=== PATIENT | female | born 1955 | race Caucasian/White ===

== ENCOUNTER 2024-03-16 10:12 | Day surgery (SDC) | payer OTHER ==
[2024-03-12 16:17] LABS: BASOPHILS # (AUTO) 0.1 X10'3 (0-0.2); EOSINOPHILS # (AUTO) 0.1 X10'3 (0-0.9); EOSINOPHILS % (AUTO) 1.1 % (0-6); LYMPHOCYTES # (AUTO) 2.3 X10'3 (1.1-4.8); LYMPHOCYTES % (AUTO) 37.1 % (21-51); MEAN CORPUSCULAR HEMOGLOBIN 30.3 PG (27.0-31.0); MEAN CORPUSCULAR VOLUME 89.2 FL (78-98); MEAN PLATELET VOLUME 7.4 FL (7.4-10.4); MONOCYTES # (AUTO) 0.5 X10'3 (0-0.9); MONOCYTES % (AUTO) 8.8 % (2-12); NEUTROPHILS # (AUTO) 3.2 X10'3 (1.8-7.7); PRE OP HEMATOCRIT 37.4 % (35.0-45.0); PRE OP HEMOGLOBIN 12.7 g/dL (12.0-16.0); PRE OP PLATELET COUNT 324 X10'3 (140-440); PRE OP WHITE BLOOD COUNT 6.1 10'3 (4.8-10.8); RED BLOOD COUNT 4.19 X10'6 (4.20-5.60); RED CELL DISTRIBUTION WIDTH 13.9 % (11.5-14.5)
[2024-03-12 16:18] LABS: BILIRUBIN,URINE NEGATIVE (Neg); CLARITY,URINE CLEAR (Clear); COLOR,URINE YELLOW (Yellow); GLUCOSE, URINE NEGATIVE (Neg); KETONES,URINE NEGATIVE (Neg); LEUKOCYTE ESTERASE ,URINE NEGATIVE (Neg); NITRITES, URINE NEGATIVE (Neg); OCCULT BLOOD,URINE NEGATIVE (Neg); PROTEIN,URINE NEGATIVE (Neg); UROBILINOGEN,URINE 0.2 E.U/dL (0.2-1.0)
[2024-03-12 16:26] LABS: UA COLLECTION TYPE NON-SPECIFIED
[2024-03-12 16:31] LABS: PRE OP PROTIME 10.6 SECONDS (9.0-12.0)
[2024-03-12 16:42] LABS: ALBUMIN 3.7 G/DL (3.4-5.0); ALBUMIN/GLOBULIN RATIO 1.2 (1.1-1.5); ALKALINE PHOSPHATASE 67 IU/L (46-116); BLOOD UREA NITROGEN 28 MG/DL (7-18); BUN/CREATININE RATIO 31.8 (10.0-20.0); CALCIUM 8.6 MG/DL (8.5-10.1); CHLORIDE 107 MMOL/L (99-107); CREATININE 0.88 MG/DL (0.40-0.90); PRE OP ALT 24 U/L (30-65); PRE OP ANION GAP 6 (8-16); PRE OP AST 14 U/L (10-37); PRE OP BILIRUB, TOTAL 0.4 MG/DL (0.0-1.0); PRE OP GLUCOSE 101 MG/DL (70-104); PRE OP POTASSIUM 3.9 MMOL/L (3.4-5.1); PRE OP SODIUM 142 MMOL/L (135-145); THYROID STIMULATING HORMONE 2.18 ulU/ml (0.34-4.50); TOTAL PROTEIN 6.7 G/DL (6.4-8.2); eGFR 64 ML/MIN
[2024-03-16] VITALS (24 sets, daily range): BP systolic 102–162; BP diastolic 45–103; PULSE 57–86; RESP 10–19; TEMP 97.3–97.8; O2SAT 93–100
[~2024-03-16] VITALS: Ht 162.6 cm; Wt 82.1 kg
[~2024-03-16 10:12] MED LIST: ACET-75 PO; ASHWAGANDHA; B-COMPLEX; BENZ200C53 PO; CALCIUM PLUS D; DICL100G59 TOP; ESCI-8 PO; HYDR-3686 PO; HYDR25TA4 PO; IRON; LEVO125T8 PO; MAGNESIUM; OLME40TA18; OMEGA-3; OMEP40CA21 PO; SUMA100T16 PO
[2024-03-16] MEDS ORDERED: methylene blue (5mg/ml) 50mg/10ml ampul IV ONE (11:49)
[2024-03-16] MEDS ORDERED: gelatin sponge, absorbable (Gelfoam 100) sponge TP ONE (11:49)
[2024-03-16] MEDS ORDERED: Thrombin (Bovine) 5,000 unit vial TP ONE (11:49)
[2024-03-16] MEDS ORDERED: vancomycin 1,000mg inj ONE (11:49)
[2024-03-16] MEDS: famotidine 20mg tablet PO ONE (11:57)
[2024-03-16] MEDS: ringers solution, lacted 1,000 ML IV SCH ×2 (11:58→20:38)
[2024-03-16] MEDS: tranexamic acid 1gm/0.7% sal. 100 ML IV ONE (11:58)
[2024-03-16] MEDS: ceFAZolin 2gm in dextrose, iso 50 ML IV ONE (11:58)
[2024-03-16] MEDS ORDERED: acetaminophen 325mg tablet PO PRN (14:05)
[2024-03-16] MEDS ORDERED: potassium cl 20mEq in 1/2 NS 1,000 ML IV SCH (14:05)
[2024-03-16] MEDS ORDERED: naloxone 0.4 mg/ml inj IV PRN (14:05)
[2024-03-16] MEDS ORDERED: bisacodyl 10mg suppository rectal RC PRN (14:05)
[2024-03-16] MEDS ORDERED: magnesium hydroxide 30ml (MOM) UD suspension PO PRN (14:05)
[2024-03-16] MEDS ORDERED: ondansetron/PF 4mg/2ml inj IV PRN (14:05)
[2024-03-16] MEDS ORDERED: sevoflurane 250ml liquid IH ONE (14:11)
[2024-03-16] MEDS ORDERED: fentaNYL/PF 50MCG/1 ML 2ML syringe ONE (14:16)
[2024-03-16] MEDS ORDERED: midazolam 1 mg/ML 2ml injection ONE (14:17)
[2024-03-16] MEDS ORDERED: ePHEDrine 50MG/ML INJ. ONE (14:38)
[2024-03-16] MEDS ORDERED: acetaminophen 1,000mg/100ml IV 100 ML IV ONE (14:44)
[2024-03-16] MEDS ORDERED: LIDOcaine 2% (20mg/ml) 5ml vial ONE (14:44)
[2024-03-16] MEDS ORDERED: propofol inj 20 ML IV ONE (14:44)
[2024-03-16] MEDS ORDERED: ROPIVAcaine 0.5% (5mg/ml) 30ml vial ONE (14:44)
[2024-03-16] MEDS ORDERED: ondansetron/PF 4mg/2ml inj ONE (14:45)
[2024-03-16] MEDS ORDERED: dexamethasone sod phosphate 4mg/ml inj. ONE (14:45)
[2024-03-16] MEDS ORDERED: hydrALAZINE 20mg/ml inj. IV PRN (15:15)
[2024-03-16] MEDS ORDERED: enalaprilat 1.25mg/ml 2ml vial IV PRN (15:15)
[2024-03-16] MEDS ORDERED: morphine 4 MG/ML inj SYRINge IV PRN (15:15)
[2024-03-16] MEDS ORDERED: fentaNYL/PF 50MCG/1 ML 2ML syringe IV PRN ×2 (15:15)
[2024-03-16] MEDS ORDERED: ceFAZolin 2gm in dextrose, iso 50 ML IV SCH (16:00)
[2024-03-16] MEDS: ondansetron/PF 4mg/2ml inj IV PRN (16:32)
[2024-03-16] MEDS: morphine 2 MG/ML inj. syringe IV PRN (16:32)
[2024-03-16] MEDS: HYDROcodone/acetaminophen 5mg/325mg tablet PO PRN (20:37)
[2024-03-16] MEDS ORDERED: SUMAtriptan 25 MG tablet PO PRN (20:40)
[2024-03-16] MEDS: ceFAZolin 2gm in dextrose, iso 50 ML IV SCH (23:29)
[2024-03-17 02:00] VITALS: BP 104/49; PULSE 81; RESP 16; TEMP 97.6; O2SAT 94
[2024-03-17 05:57] LABS: BASOPHILS % (AUTO) 0.2 % (0-1); EOSINOPHILS % (AUTO) 0 % (0-6); HEMATOCRIT 37.3 % (35.0-45.0); HEMOGLOBIN 12.3 g/dl (12.0-16.0); LYMPHOCYTES # (AUTO) 1.2 X10'3 (1.1-4.8); LYMPHOCYTES % (AUTO) 10.4 % (21-51); MEAN CORPUSCULAR HEMOGLOBIN 29.7 PG (27.0-31.0); MEAN CORPUSCULAR HGB CONC 33.1 g/dL (33.0-36.5); MEAN CORPUSCULAR VOLUME 89.7 FL (78-98); MEAN PLATELET VOLUME 7.6 FL (7.4-10.4); MONOCYTES % (AUTO) 8.8 % (2-12); NEUTROPHILS # (AUTO) 9.1 X10'3 (1.8-7.7); NEUTROPHILS % (AUTO) 80.6 % (42-75); PLATELET COUNT 302 X10'3 (140-440); RED BLOOD COUNT 4.16 X10'6 (4.20-5.60); WHITE BLOOD COUNT 11.3 X10'3 (4.5-11.0)
[2024-03-17 08:00] VITALS: RESP 16; O2SAT 98
[2024-03-17 08:05] LABS: ALANINE AMINOTRANSFERASE 24 U/L (12-78); ALBUMIN 3.4 G/DL (3.4-5.0); ALKALINE PHOSPHATASE 65 IU/L (46-116); ANION GAP 10 (8-16); ASPARTATE AMINO TRANSFERASE 19 U/L (10-37); BILIRUBIN,TOTAL 0.6 MG/DL (0.1-1.0); BLOOD UREA NITROGEN 16 MG/DL (7-18); BUN/CREATININE RATIO 18.2 (10.0-20.0); CALCIUM 8.9 MG/DL (8.5-10.1); CHLORIDE 102 MMOL/L (99-107); CREATININE 0.88 MG/DL (0.40-0.90); GLUCOSE 123 MG/DL (70-104); SODIUM 139 MMOL/L (135-145); TOTAL CARBON DIOXIDE 26.8 MMOL/L (24-32); TOTAL PROTEIN 6.7 G/DL (6.4-8.2); eCRCL 51 ML/MIN; eGFR 64 ML/MIN
[2024-03-17] MEDS ORDERED: aspirin 325mg tablet PO SCH (08:30)
[2024-03-17 11:45] VITALS: RESP 16
[2024-03-17] MEDS: HYDROcodone/acetaminophen 5mg/325mg tablet PO PRN (11:45)
[2024-03-17 11:46] VITALS: BP_SYST 145; PULSE 76
[2024-03-17] MEDS: losartan 50mg tablet PO SCH (11:46)
[2024-03-17] MEDS: ESCITALOPRAM 10 mg tablet 10 MG TABLET PO SCH (11:46)
[2024-03-17] MEDS: hydrOXYzine 25 MG tablet PO PRN (11:46)
[2024-03-17] MEDS: HYDROchlorothiazide 25mg tablet PO SCH (11:46)
[2024-03-17] MEDS: levoTHYROXINE 125mcg tablet PO SCH (11:46)
[2024-03-17] MEDS: pantoprazole 40mg Tablet.DR PO SCH (11:47)
== END 2024-03-17 12:00 | disposition home or self-care (01) ==
LOC: PRE-OP 10:12 → ORTHO 4S 18:40 → PRE-OP 03-17 12:00
PROVIDERS: ATTEND Specialist
DX: M19.011 Primary osteoarthritis, right shoulder (principal); I10 Essential (primary) hypertension; E03.9 Hypothyroidism, unspecified; F41.9 Anxiety disorder, unspecified; F32.A Depression, unspecified; I25.2 Old myocardial infarction; G47.33 Obstructive sleep apnea (adult) (pediatric); G89.18 Other acute postprocedural pain; E66.9 Obesity, unspecified; Z90.89 Acquired absence of other organs; Z90.710 Acquired absence of both cervix and uterus; Z98.890 Other specified postprocedural states; Z79.890 Hormone replacement therapy; Z79.899 Other long term (current) drug therapy; Z91.041 Radiographic dye allergy status; Z91.018 Allergy to other foods; Z88.2 Allergy status to sulfonamides; Z88.8 Allergy status to other drugs, medicaments and biological substances
CPT/HCPCS: 23430; 23472; 36415; 64415; 71046; 73030; 80053; 81003; 82948; 84443; 85025; 85610; 85730; 86885; 86900; 86901; 87081; 97161; 97530; C1776; J0131; J0330; J0690; J1100; J2003; J2250; J2270; J2405; J2704; J2795; J3010; J3370; J3480; J3490; J7030; J7120; Q0177; Z7506; Z7508; Z7512; 76000; A4615; A4618; A6449; A6455; A7000; G0378; Q9968